=== PATIENT | female | born 2000 | race Asian ===

== ENCOUNTER 2024-05-01 09:59 | Inpatient (IN) ==
[2024-05-01] MEDS ORDERED: Al Hydrox/Mg Hydrox/Simet LIQ 30 ML UDC PO PRN (12:24)
[2024-05-01 14:30] LABS: Urine Appearance Clear; Urine Bilirubin Negative (Negative); Urine Blood Negative (Negative); Urine Color Yellow; Urine Glucose Negative (Negative); Urine Ketones 2+ (Negative); Urine Nitrite Negative (Negative); Urine Protein 2+ (>=100 mg/dL) (Negative); Urine Specific Gravity 1.032 (1.002-1.030); Urine Urobilinogen 1+ (Negative); Urine pH 6.5 (5.0-8.0)
[2024-05-01 14:46] LABS: Urine Bacteria Absent /HPF (Absent); Urine Red Blood Cell Trace(0-2/hpf) /HPF (0-Trace); Urine Squamous Epithelial Cell Present /HPF (Absent); Urine White Blood Cell 1+(6-10/hpf) /HPF (0-Trace)
[2024-05-01 15:06] LABS: Urine Benzodiazepine Screen None Detected (None Detect); Urine Cannabinoids Screen Presumptive Positive (None Detect); Urine Opiates Screen None Detected (None Detect)
[2024-05-01 15:24] LABS: HIV 4th Generation Nonreactive (Nonreactive)
[2024-05-01 15:58] LABS: Hepatitis C Antibody Negative (Negative)
[2024-05-01] MEDS: Nicotine GUM 2MG FRUIT FLAVOR PO PRN (18:41)
[2024-05-02] MEDS: Nicotine PATCH 7 MG/24 HR PATCH TRANSDERM SCH (07:39)
[2024-05-05 08:25] LABS: HDL Cholesterol 63.6 mg/dL
[2024-05-07 09:04] VITALS: BP 111/66
== END 2024-05-07 17:30 | disposition home or self-care (01) | DRG 880 ==
LOC: ED 09:59 → EDHOLD 12:24 → BSU 15:16
PROVIDERS: ADMIT Psychiatry & Neurology Psychiatry; ATTEND Psychiatry & Neurology Psychiatry